=== PATIENT | female | born 1995 | race Caucasian/White ===

== ENCOUNTER 2019-07-17 10:12 | Emergency (ER) | payer OTHER, SELFPAY ==
[2019-07-17 11:10] LABS: Absolute Lymphocytes (CBC) 0.6 K/uL (0.7-4.9); Basophils % 0.2 % (0-1.3); Hematocrit 40.2 % (36.0-45.0); Lymphocytes % 5.7 % (15.3-44.8); MPV 9.8 fL (7.6-11.3); RBC Red Blood Cell Count 4.41 M/uL (3.86-4.86)
[2019-07-17 11:30] LABS: Albumin 4.2 g/dL (3.4-5.0); Bilirubin Direct 0.4 mg/dL (0-0.2); Potassium 3.8 mmol/L (3.5-5.1)
[2019-07-17] MEDS ORDERED: MORPHINE 4 MG/ML SYR ONE (11:39)
[2019-07-17] MEDS ORDERED: ONDANSETRON 4 MG/2 ML VIAL ONE (11:39)
[2019-07-17 11:42] LABS: Urine Bacteria <20 /HPF (<20); Urine Culture Reflex Order NOT NEEDED; Urine RBC <5 /HPF (NONE SEEN); Urine Trichomonas PRESENT (NONE SEEN)
[2019-07-17 11:53] LABS: Platelet Estimate DECR; Platelets, Giant PRESENT; Urine White Blood Cell Casts OK
[2019-07-17 11:54] LABS: Blood Morphology Comment NOT SEEN (NOT SEEN)
--- NOTE | 2019-07-17 12:34 | RAD REPORT ---
EXAM DESCRIPTION: US - Abdomen Exam Limited - 07/17/2019 12:21 pm CLINICAL HISTORY: right sided abdominal pain COMPARISON: No comparisons FINDINGS: The gallbladder demonstrates no gallstones. No pericholecystic fluid or gallbladder wall t hickening. The common bile duct is normal measuring 3 mm. The liver demonstrates no findings of intrahepatic biliary dilatation. IMPRESSION: Unremarkable examination.
[2019-07-17] MEDS ORDERED: AZITHROMYCIN 250 MG TAB ONE (13:08)
[2019-07-17] MEDS ORDERED: metroNIDAZOLE 500 MG TABLET ONE (13:09)
[2019-07-17] MEDS ORDERED: CEFTRIAXONE 250 MG/VIAL ONE (13:09)
--- NOTE | 2019-07-17 13:18 | EDPHYS ---
Physician Documentation [facility] Name: Viviane Parson Age: 24 yrs Sex: Female : 1995 Arrival Date: 07/17/2019 Time: 10:17 Bed 16 Private MD: ED Physician Mauricio Us HPI: 07/17 10:44 This 24 yrs old Female presents to ER via Ambulatory with complaints of Flank jmm Pain, Urinary Problem. 10:44 The patient complains of pain in the right flank. Onset: The symptoms/episode jmm began/occurred acutely. Modifying factors: The symptoms are alleviated by nothing. the symptoms are aggravated by nothing. Associated signs and symptoms: Pertinent positives: nausea. This is a 24 year old female with no chronic medical conditions that presents to the ED with complaints of right flank pain beginning this morning with nausea. Patient also complains of pelvic pain which radiates to the back. . 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 - Social history:: Smoking status: Patient uses tobacco products, Vapes. - Ebola Screening: : Patient negative for fever greater than or equal to 101.5 degrees Fahrenheit, and additional compatible Ebola Virus Disease symptoms. ROS: 10:44 Constitutional: Negative for fever, chills, and weight loss, Cardiovascular: Negative jmm for chest pain, palpitations, and edema, Respiratory: Negative for shortness of breath, cough, wheezing, and pleuritic chest pain. 10:44 Abdomen/GI: Positive for abdominal pain, nausea. 10:44 Back: Positive for flank pain, on the right. 10:44 All other systems are negative. Exam: 10:44 Constitutional: This is a well developed, well nourished patient who is awake, alert, jmm and in no acute distress. Head/Face: atraumatic. Eyes: EOMI, no conjunctival erythema appreciated ENT: Moist Mucus Membranes Neck: Trachea midline, Supple Chest/axilla: Normal chest wall appearance and motion. Cardiovascular: Regular rate and rhythm. No edema appreciated Respiratory: Normal respirations, no respiratory distress appreciated Abdomen/GI: Non distended, soft Back: Normal ROM Skin: General appearance color normal MS/ Extremity: Moves all extremities, no obvious deformities appreciated, no edema noted to the lower extremities Neuro: Awake and alert, normal gait Psych: Behavior is normal, Mood is normal, Patient is cooperative and pleasant Vital Signs: 10:24 BP 99 / 58; Pulse 85; Resp 16; Temp 98.2(TE); Pulse Ox 98% on R/A; Weight 73.03 kg (M); rb1 Height 5 ft. 7 in. (170.18 cm) (R); Pain 3/10; 11:24 BP 104 / 60; Pulse 77; Resp 16; Pulse Ox 99% on R/A; Pain 7/10; rb1 12:23 BP 143 / 60; Pulse 71; Resp 16; Pulse Ox 99% on R/A; Pain 4/10; rb1 13:21 BP 102 / 58; Pulse 94; Resp 16; Temp 98.1(O); Pulse Ox 100% on R/A; Pain 3/10; rb1 10:24 Body Mass Index 25.22 (73.03 kg, 170.18 cm) rb1 MDM: 10:27 Patient medically screened. [facility] 13:15 Data reviewed: vital signs, nurses notes. Counseling: I had a detailed discussion with joe the patient and/or guardian regarding: the historical points, exam findings, and any diagnostic results supporting the discharge/admit diagnosis, lab results, radiology results, the need for outpatient follow up, to return to the emergency department if symptoms worsen or persist or if there are any questions or concerns that arise at home. ED course: Patient is alert and non toxic in the ED. I discussed lab results along with the need for her partner to get tested. Due to right flank pain, patient is advised to follow up with GI. Patient also given early appendicitis return precautions. patient understood and agrees with the plan of care. . 07/17 10:42 Order name: Basic Metabolic Panel; Complete Time: 11:34 [facility] 07/17 10:42 Order name: CBC with Diff; Complete Time: 12:00 [facility] 07/17 10:42 Order name: Creatinine for Radiology; Complete Time: 11:34 [facility] 07/17 10:42 Order name: Hepatic Function; Complete Time: 11:34 [facility] 07/17 10:42 Order name: Lipase; Complete Time: 11:34 [facility] 07/17 11:14 Order name: Urine Microscopic Only; Complete Time: 12:00 [facility] 07/17 11:14 Order name: Urine Culture [facility] 07/17 11:23 Order name: Urine Dipstick--Ancillary (enter results) 1 07/17 11:23 Order name: Urine --Ancillary (enter results) [facility] 07/17 11:35 Order name: US Abdomen Limited; Complete Time: 12:43 [facility] 07/17 11:55 Order name: CBC Smear Scan; Complete Time: 12:00 [facility] 07/17 10:42 Order name: IV Saline Lock; Complete Time: 11:13 [facility] 07/17 10:42 Order name: Labs collected and sent; Complete Time: 11:13 [facility] 07/17 10:42 Order name: Urine Dipstick-Ancillary (obtain specimen); Complete Time: 11:13 [facility] 07/17 10:42 Order name: Urine Test (obtain specimen); Complete Time: 11:13 [facility] Administered Medications: 11:45 Drug: morphine 4 mg Route: IVP; Site: right antecubital; rb1 12:00 Follow up: Response: No adverse reaction; Pain is decreased rb1 11:45 Drug: Zofran 4 mg Route: IVP; Site: right antecubital; rb1 12:00 Follow up: Response: No adverse reaction; Nausea is decreased rb1 13:21 Drug: Rocephin (cefTRIAXone) 250 mg Route: IM; Site: left deltoid; rb1 13:50 Follow up: Response: No adverse reaction rb1 13:21 Drug: Flagyl 2 grams Route: PO; rb1 13:50 Follow up: Response: No adverse reaction rb1 13:21 Drug: AZITHromycin 1 grams Route: PO; rb1 13:50 Follow up: Response: No adverse reaction rb1 Disposition: 15:18 Co-signature as Attending Physician, Mauricio Us MD I agree with the assessment and kdr plan of care. Disposition: 07/17/19 13:17 Discharged to Home. Impression: Flank Pain, Trichomoniasis, unspecified. - Condition is Stable. - Discharge Instructions: Abdominal Pain, Adult, Flank Pain, Adult, Sexually Transmitted Disease, Trichomoniasis. - Prescriptions for Ultracet 37.5- 325 mg Oral Tablet - take 1 tablet by ORAL route every 6 hours - for up to 5 days; do not exceed 8 tablets per day.; 12 tablet. - Medication Reconciliation Form, Thank You Letter, Antibiotic Education, Prescription Opioid Use, Family Work Release form. - Follow up: Rosemary Serrano MD; When: 2 - 3 days; Reason: Recheck today's complaints, Continuance of care, Re-evaluation by your physician. Signatures: Dispatcher [employer] EDMauricio Baker MD MD kdr Mickail, Joel, PA PA Cass Odonnell, RN RN rb1 Corrections: (The following items were deleted from the chart) 13:55 13:17 07/17/2019 13:17 Discharged to Home. Impression: Flank Pain; Trichomoniasis, rb1 unspecified. Condition is Stable. Forms are Medication Reconciliation Form, Thank You Letter, Antibiotic Education, Prescription Opioid Use. Follow up: Rosemary Serrano; When: 2 - 3 days; Reason: Recheck today's complaints, Continuance of care, Re-evaluation by your physician. joe
--- NOTE | 2019-07-17 13:18 | ER ---
Nurse's Notes [facility] Name: Viviane Parson Age: 24 yrs Sex: Female : 1995 Arrival Date: 07/17/2019 Time: :17 Bed 16 Private MD: Diagnosis: Flank Pain;Trichomoniasis, unspecified Presentation: 07/17 10:24 Presenting complaint: Patient states: Back pain started this morning pain is similar to rb1 contractions per pt. report. Transition of care: patient was not received from another setting of care. Onset of symptoms was July 17, 2019. Risk Assessment: Do you want to hurt yourself or someone else? Patient reports no desire to harm self or others. Initial Sepsis Screen: Does the patient meet any 2 criteria? No. Patient's initial sepsis screen is negative. Does the patient have a suspected source of infection? No. Patient's initial sepsis screen is negative. Care prior to arrival: None. 10:24 Method Of Arrival: Ambulatory rb1 10:24 Acuity: HE 3 rb1 Triage Assessment: 10:24 General: Appears in no apparent distress. comfortable, Behavior is calm, cooperative, rb1 Reports fatigue for 0-12 hours, Denies fever. Pain: Complains of pain in right low back Pain radiates to right lower quadrant Pain currently is 3 out of 10 on a pain scale. at worst was 8 out of 10 on a pain scale. Pain began 0600 this morning. Neuro: Level of Consciousness is awake, alert, obeys commands, Oriented to person, place, time, situation. Cardiovascular: Capillary refill < 3 seconds is brisk in bilateral fingers. Respiratory: Airway is patent Respiratory effort is even, unlabored, Respiratory pattern is regular, symmetrical. GI: Reports diarrhea, nausea, since 0600. : No signs and/or symptoms were reported regarding the genitourinary system. Derm: Skin is pink, warm \T\ dry. 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 - Social history:: Smoking status: Patient uses tobacco products, Vapes. - Ebola Screening: : Patient negative for fever greater than or equal to 101.5 degrees Fahrenheit, and additional compatible Ebola Virus Disease symptoms. Screenin:24 Abuse screen: Denies threats or abuse. Nutritional screening: No deficits noted. rb1 Tuberculosis screening: No symptoms or risk factors identified. Fall Risk None identified. Assessment: 10:24 General: See triage assessment. rb1 11:24 Reassessment: Patient appears in no apparent distress at this time. Patient and/or rb1 family updated on plan of care and expected duration. Pain level reassessed. Patient is alert, oriented x 3, equal unlabored respirations, skin warm/dry/pink. 12:23 Reassessment: Patient appears in no apparent distress at this time. Patient and/or rb1 family updated on plan of care and expected duration. Pain level reassessed. Patient is alert, oriented x 3, equal unlabored respirations, skin warm/dry/pink. 13:21 Reassessment: Patient appears in no apparent distress at this time. No changes from rb1 previously documented assessment. 13:25 Reassessment: Discharge pending due to shot time. rb1 Vital Signs: 10:24 BP 99 / 58; Pulse 85; Resp 16; Temp 98.2(TE); Pulse Ox 98% on R/A; Weight 73.03 kg (M); rb1 Height 5 ft. 7 in. (170.18 cm) (R); Pain 3/10; 11:24 BP 104 / 60; Pulse 77; Resp 16; Pulse Ox 99% on R/A; Pain 7/10; rb1 12:23 BP 143 / 60; Pulse 71; Resp 16; Pulse Ox 99% on R/A; Pain 4/10; rb1 13:21 BP 102 / 58; Pulse 94; Resp 16; Temp 98.1(O); Pulse Ox 100% on R/A; Pain 3/10; rb1 10:24 Body Mass Index 25.22 (73.03 kg, 170.18 cm) [facility] ED Course: 10:17 Patient arrived in ED. as 10:20 Richard Villaseñor PA is PHCP. [facility] 10:20 Mauricio Us MD is Attending Physician. [facility] 10:24 Cass Stephens RN is Primary Nurse. rb1 10:24 Arm band placed on right wrist. rb1 10:24 Patient has correct armband on for positive identification. Bed in low position. Call rb1 light in reach. Side rails up X 1. Pulse ox on. NIBP on. Warm blanket given. 10:43 Triage completed. rb1 12:14 US Abdomen Limited In Process Unspecified. EDMS 13:16 Rosemary Serrano MD is Referral Physician. [facility] 13:55 No provider procedures requiring assistance completed. IV discontinued, intact, rb1 bleeding controlled, No redness/swelling at site. Pressure dressing applied. Administered Medications: 11:45 Drug: morphine 4 mg Route: IVP; Site: right antecubital; rb1 12:00 Follow up: Response: No adverse reaction; Pain is decreased rb1 11:45 Drug: Zofran 4 mg Route: IVP; Site: right antecubital; rb1 12:00 Follow up: Response: No adverse reaction; Nausea is decreased rb1 13:21 Drug: Rocephin (cefTRIAXone) 250 mg Route: IM; Site: left deltoid; rb1 13:50 Follow up: Response: No adverse reaction rb1 13:21 Drug: Flagyl 2 grams Route: PO; rb1 13:50 Follow up: Response: No adverse reaction rb1 13:21 Drug: AZITHromycin 1 grams Route: PO; rb1 13:50 Follow up: Response: No adverse reaction rb1 Outcome: 13:17 Discharge ordered by . m 13:55 Patient left the ED. rb1 13:55 Discharged to home ambulatory, with significant other. rb1 13:55 Condition: stable 13:55 Discharge instructions given to patient, Instructed on discharge instructions, follow up and referral plans. medication usage, Demonstrated understanding of instructions, follow-up care, medications, Prescriptions given X 1. Addendum: 07/20/2019 18:51 Addendum: Culture Results: Positive urine culture. Patient was not prescribed i w antibiotics at discharge. Report given to CARLOS for further evaluation and then to columnist/commentator for follow up with patient. Phone call Attempt #1 pt not having urinary s/s, no further action needed. Signatures: Dispatcher [employer] EDMS Richard Villaseñor PA PA jmm Martinez, Amelia as Williams, Irene, RN RN iw Cass Stephens RN RN rb1
[2019-07-17 14:00] VITALS: TEMP 98.2
[2019-07-17 14:02] VITALS: BP 104/60; O2SAT 99
[2019-07-17 14:26] LABS: Urine Blood NEGATIVE (NEG); Urine Glucose NEGATIVE (NEG); Urine Protein NEGATIVE (NEG); Urine Specific Gravity 1.025 (1.005-1.030); Urine pH 6.5 (5.0-7.0)
== END 2019-07-17 13:55 | disposition home or self-care (01) ==
LOC: ER 10:12
DX: A59.9 Trichomoniasis, unspecified (principal); F17.290 Nicotine dependence, other tobacco product, uncomplicated; Z91.040 Latex allergy status; Z91.048 Other nonmedicinal substance allergy status
CPT/HCPCS: 87088; 85025; 87086; 80048; 36415; 81025; 80076; 87077; 87186; 83690; 76705; 96375; 96372; 96374; 99284; J2405; J0696; 81003; 81015

== ENCOUNTER 2019-11-10 16:31 | Emergency (ER) | payer OTHER, SELFPAY ==
--- NOTE | 2019-11-10 17:38 | ER ---
Nurse's Notes [facility] Name: Viviane Parson Age: 24 yrs Sex: Female : 1995 Arrival Date: 11/10/2019 Time: 16:32 Bed 13 Private MD: Diagnosis: Pain in right foot Presentation: 11/10 16:36 Presenting complaint: Right foot pain x 2 days. Denies injury. Transition of care: hb patient was not received from another setting of care. Onset of symptoms was November 09, 2019. Risk Assessment: Do you want to hurt yourself or someone else? Patient reports no desire to harm self or others. Initial Sepsis Screen: Does the patient meet any 2 criteria? No. Patient's initial sepsis screen is negative. Does the patient have a suspected source of infection? No. Patient's initial sepsis screen is negative. Care prior to arrival: None. 16:36 Method Of Arrival: Wheelchair 16:36 Acuity: HE 4 hb Triage Assessment: 16:45 General: Appears in no apparent distress. comfortable, Behavior is cooperative, bp appropriate for age, anxious. Pain: Complains of pain in right foot. EENT: No deficits noted. Neuro: No deficits noted. Cardiovascular: No deficits noted. Respiratory: No deficits noted. GI: No signs and/or symptoms were reported involving the gastrointestinal system. : No signs and/or symptoms were reported regarding the genitourinary system. Derm: No deficits noted. Musculoskeletal: Reports R FOOT PAIN/SWELLING. 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 - Coronavirus screen:: The patient has NOT traveled to [place] in the past 14 days. The patient has NOT had contact with known/suspected case of Coronavirus? Proceed with normal triage procedures. - Social history:: Smoking status: Patient reports the use of cigarette tobacco products, smokes one pack cigarettes per day. - Ebola Screening: : No symptoms or risks identified at this time. Screenin:45 Abuse screen: Denies threats or abuse. Denies injuries from another. Nutritional bp screening: No deficits noted. Tuberculosis screening: No symptoms or risk factors identified. Fall Risk None identified. Assessment: 16:45 General: SEE TRIAGE NOTE. bp 18:05 Reassessment: PT D/C HOME ON CRUTCHES, DX WITH RIGHT FOOT PAIN. bp Vital Signs: 16:39 BP 102 / 73; Pulse 72; Resp 16; Temp 97.5; Pulse Ox 100% ; Weight 63.5 kg; Height 5 ft. hb 6 in. (167.64 cm); Pain 8/10; 18:00 BP 109 / 69; Pulse 67; Resp 17; Temp 97.8; Pulse Ox 100% ; bp 16:39 Body Mass Index 22.60 (63.50 kg, 167.64 cm) hb ED Course: 16:32 Patient arrived in ED. ag5 16:37 Triage completed. hb 16:39 Arm band placed on. hb 16:45 Diaz River PA is PHCP. cp 16:45 Diaz Metcalf MD is Attending Physician. cp 16:45 Patient has correct armband on for positive identification. Bed in low position. Call bp light in reach. Side rails up X2. 17:03 Bandar Lama, RN is Primary Nurse. bp 17:50 Crutch training done. Adolfo wrap to right foot. bp 18:05 No provider procedures requiring assistance completed. Patient did not have IV access bp during this emergency room visit. Administered Medications: No medications were administered Outcome: 17:36 Discharge ordered by MD. cp 18:05 Discharged to home ambulatory, with crutches. bp 18:05 Condition: stable 18:05 Discharge instructions given to patient, Instructed on discharge instructions, follow up and referral plans. medication usage, crutch walking, Demonstrated understanding of instructions, follow-up care, medications, crutch walking, Prescriptions given X 1. 18:07 Patient left the ED. bp Signatures: Diaz River PA PA cp Justine Campos RN RN Bandar Lama, KANDACE RN bp Yang Del Valle ag5 Corrections: (The following items were deleted from the chart) 18:07 18:05 Reassessment: PT D/C HOME ON CRUTCHES, DX WITH LEFT FOOT PAIN bp bp
--- NOTE | 2019-11-10 17:39 | EDPHYS ---
Physician Documentation [facility] Name: Viviane Parson Age: 24 yrs Sex: Female : 1995 Arrival Date: 11/10/2019 Time: 16:32 Bed 13 Private MD: ED Physician Diaz Metcalf HPI: 11/10 17:05 This 24 yrs old Female presents to ER via Wheelchair with complaints of Foot cp Pain, Feet Swelling. 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 - Coronavirus screen:: The patient has NOT traveled to [place] in the past 14 days. The patient has NOT had contact with known/suspected case of Coronavirus? Proceed with normal triage procedures. - Social history:: Smoking status: Patient reports the use of cigarette tobacco products, smokes one pack cigarettes per day. - Ebola Screening: : No symptoms or risks identified at this time. ROS: 17:10 Constitutional: Negative for chills, fever. cp 17:10 Eyes: Negative for injury, pain, redness, and discharge. cp 17:10 Respiratory: Negative for cough, shortness of breath. 17:10 Abdomen/GI: Negative for abdominal pain. 17:10 MS/extremity: Positive for pain, swelling, tenderness, of the right foot, Negative for injury or acute deformity, paresthesias. 17:10 Skin: Negative for rash. 17:10 All other systems are negative. Exam: 17:20 Constitutional: The patient appears in no acute distress, alert, awake, non-toxic, well cp developed, well nourished. 17:20 Head/Face: Normocephalic, atraumatic. cp 17:20 Cardiovascular: Rate: normal. 17:20 Respiratory: the patient does not display signs of respiratory distress, Respirations: normal. 17:20 Musculoskeletal/extremity: Extremities: grossly normal except: noted in the proximal right great toe: pain, swelling, tenderness, There is no evidence of decreased ROM, deformity, Perfusion: the extremity is normally perfused throughout, Sensation intact. 17:20 Skin: cellulitis, is not appreciated, no rash present. Vital Signs: 16:39 BP 102 / 73; Pulse 72; Resp 16; Temp 97.5; Pulse Ox 100% ; Weight 63.5 kg; Height 5 ft. hb 6 in. (167.64 cm); Pain 8/10; 18:00 BP 109 / 69; Pulse 67; Resp 17; Temp 97.8; Pulse Ox 100% ; bp 16:39 Body Mass Index 22.60 (63.50 kg, 167.64 cm) hb MDM: 16:46 Patient medically screened. cp 17:35 Data reviewed: vital signs, nurses notes, radiologic studies, plain films. Test cp interpretation: by ED physician or midlevel provider: plain radiologic studies, xrays of right foot negative for fracture. 11/10 17:03 Order name: XRAY Foot RIGHT 3 View cp 11/10 17:34 Order name: Adolfo Wrap; Complete Time: 18:04 cp 11/10 17:34 Order name: Crutches; Complete Time: 18:04 cp Administered Medications: No medications were administered Disposition: 11/10/19 17:36 Discharged to Home. Impression: Pain in right foot. - Condition is Stable. - Discharge Instructions: Foot Pain. - Prescriptions for Diclofenac Sodium 75 mg Oral Tablet, Delayed Release (E.C.) - take 1 tablet by ORAL route 2 times per day; 20 tablet. - Medication Reconciliation Form, Thank You Letter, Antibiotic Education, Prescription Opioid Use form. - Follow up: Private Physician; When: 2 - 3 days; Reason: Worsening of condition. - Problem is new. - Symptoms have improved. Addendum: 11/12/2019 08:35 Co-signature as Attending Physician, Diaz Metcalf MD I agree with the assessment and c flynn plan of care. Signatures: Dispatcher [employer] Diaz Osborne MD MD cha Page, Corey PA PA cp Justine Campos, KANDACE RN Bandar Philippe RN RN bp Corrections: (The following items were deleted from the chart) 11/10 18:07 17:36 11/10/2019 17:36 Discharged to Home. Impression: Pain in right foot. Condition is bp Stable. Forms are Medication Reconciliation Form, Thank You Letter, Antibiotic Education, Prescription Opioid Use. Follow up: Private Physician; When: 2 - 3 days; Reason: Worsening of condition. Problem is new. Symptoms have improved. cp 23:21 15:10 MS/extremity: Positive for pain, swelling, tenderness, of the right foot, cp cp 23:21 15:10 Constitutional: Negative for body aches, chills, fever, cp cp 23:21 15:10 Eyes: Negative for injury, pain, redness, and discharge, cp cp 23:21 15:10 Cardiovascular: Negative for chest pain, cp cp 23:21 15:10 Respiratory: Negative for cough, shortness of breath, cp cp 23:21 15:10 Abdomen/GI: Negative for abdominal pain, cp cp 23:21 15:10 Skin: Negative for rash, cp cp 23:21 15:10 All other systems are negative, cp cp
--- NOTE | 2019-11-10 17:40 | RAD REPORT ---
EXAM DESCRIPTION: RAD - Foot Right 3 View - 11/10/2019 5:30 pm CLINICAL HISTORY: PAIN COMPARISON: No comparisons FINDINGS: No bone or joint abnormality seen.
[2019-11-10 20:52] VITALS: BP 102/73; TEMP 97.5; O2SAT 100
== END 2019-11-10 18:07 | disposition home or self-care (01) ==
LOC: ER 16:31
DX: M79.671 Pain in right foot (principal); Z91.040 Latex allergy status
CPT/HCPCS: 99283

== ENCOUNTER 2021-03-18 16:45 | Emergency (ER) | payer SELFPAY ==
[2021-03-18 18:04] LABS: Urine Blood Negative (Negative); Urine Glucose Negative (Negative); Urine Protein Negative (Negative); Urine Specific Gravity >=1.030 (1.005-1.030); Urine pH 5.5 (5.0-7.0)
--- NOTE | 2021-03-18 20:49 | ER ---
Nurse's Notes [facility] Name: Viviane Parson Age: 25 yrs Sex: Female : 1995 Arrival Date: 03/18/2021 Time: 16:58 Bed 28 Private MD: Diagnosis: Flank Pain;Dysuria Presentation: 03/18 17:35 Chief complaint: Patient states: Right flank pain starting 03/13. Pt stated I thought I kg had a UTI two weeks ago I took AZO and it got better, I'm no longer having burning or pain with urination but I do have dark urine, and has an odor. Coronavirus screen: Client denies travel out of the [place] in the last 14 days. At this time, unable to obtain information related to travel outside the [place] At this time, the client does not indicate any symptoms associated with coronavirus-19. Ebola Screen: Patient negative for fever greater than or equal to 101.5 degrees Fahrenheit, and additional compatible Ebola Virus Disease symptoms Patient denies exposure to infectious person. Patient denies travel to an Ebola-affected area in the 21 days before illness onset. Initial Sepsis Screen: Does the patient meet any 2 criteria? No. Patient's initial sepsis screen is negative. Does the patient have a suspected source of infection? Yes: Dysuria/Frequency/Urgency/UTI. Risk Assessment: Do you want to hurt yourself or someone else? Patient reports no desire to harm self or others. Onset of symptoms was March 13, 2021. 17:35 Method Of Arrival: Ambulatory kg 17:35 Acuity: HE 3 kg Triage Assessment: 17:39 General: Appears in no apparent distress. Behavior is calm, cooperative, appropriate kg for age, quiet. Pain: Complains of pain in Right flank Pain does not radiate. Pain currently is 7 out of 10 on a pain scale. at worst was 8 out of 10 on a pain scale. level that patient reports is acceptable is 3 out of 10 on a pain scale. Quality of pain is described as sharp, Pain began 03/13/2021. 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 - Social history:: Smoking status: Patient reports the use of cigarette tobacco products, smokes one-half pack cigarettes per day. Screenin:40 Abuse screen: Denies threats or abuse. Denies injuries from another. Nutritional kg screening: No deficits noted. Tuberculosis screening: No symptoms or risk factors identified. Fall Risk None identified. No fall in past 12 months (0 pts). No secondary diagnosis (0 pts). No IV (0 pts). Ambulatory Aid- None/Bed Rest/Nurse Assist (0 pts). Gait- Normal/Bed Rest/Wheelchair (0 pts) Mental Status- Oriented to own ability (0 pts). Total Houston Fall Scale indicates No Risk (0-24 pts). Assessment: 20:00 General: Appears in no apparent distress. comfortable, Behavior is calm, cooperative, em appropriate for age. Pain: Complains of pain in right flank Pain currently is 7 out of 10 on a pain scale. Neuro: Level of Consciousness is awake, alert, obeys commands, Oriented to person, place, time, situation. Cardiovascular: Capillary refill < 3 seconds Patient's skin is warm and dry. Respiratory: Airway is patent Respiratory effort is even, unlabored, Respiratory pattern is regular, symmetrical. GI: Patient currently denies nausea, vomiting. : Denies burning with urination. Derm: Skin is intact, is healthy with good turgor, Skin is pink, warm \T\ dry. Musculoskeletal: Capillary refill < 3 seconds, Range of motion: intact in all extremities. Vital Signs: 17:35 BP 111 / 66; Pulse 80; Resp 18; Temp 99.3(O); Pulse Ox 100% ; Weight 76.57 kg (M); kg Height 5 ft. 6 in. (167.64 cm) (R); Pain 7/10; 17:35 Body Mass Index 27.24 (76.57 kg, 167.64 cm) kg ED Course: 16:58 Patient arrived in ED. am2 17:38 Triage completed. kg 17:39 Arm band placed on right wrist. kg 17:41 Patient has correct armband on for positive identification. kg 17:41 No provider procedures requiring assistance completed. kg 19:31 Richard Villaseñor PA is PHCP. [facility] 19:31 Ramon Joyner MD is Attending Physician. [facility] 19:53 Case Lobato, RN is Primary Nurse. em 20:56 Patient did not have IV access during this emergency room visit. em Administered Medications: No medications were administered Outcome: 20:48 Discharge ordered by . [facility] 21:06 Discharged to home ambulatory. em 21:06 Condition: good 21:06 Discharge instructions given to patient, Instructed on discharge instructions, follow up and referral plans. medication usage, Demonstrated understanding of instructions, follow-up care, medications, Prescriptions given X 2. 21:06 Patient left the ED. em Signatures: Richard Villaseñor PA PA [facility] Case Lobato, RN RN Carmela Manzano counts include 234 beds at the [facility] Martha Jha, RN RN kg
--- NOTE | 2021-03-18 20:49 | EDPHYS ---
Physician Documentation [facility] Name: Viviane Parson Age: 25 yrs Sex: Female : 1995 Arrival Date: 03/18/2021 Time: 16:58 Bed 28 Private MD: FRANCISCO Physician Ramon Joyner HPI: 03/18 20:01 This 25 yrs old Female presents to ER via Ambulatory with complaints of Flank jmm Pain - Right. 20:01 The patient complains of pain in the right flank. Onset: The symptoms/episode jmm began/occurred gradually, 1 day(s) ago. Modifying factors: The symptoms are alleviated by nothing. the symptoms are aggravated by nothing. Associated signs and symptoms: Pertinent positives: dysuria, Pertinent negatives: fever. The patient has experienced similar episodes in the past. 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 - Social history:: Smoking status: Patient reports the use of cigarette tobacco products, smokes one-half pack cigarettes per day. ROS: 20:01 Constitutional: Negative for fever, chills, and weight loss, Cardiovascular: Negative jmm for chest pain, palpitations, and edema, Respiratory: Negative for shortness of breath, cough, wheezing, and pleuritic chest pain. 20:01 Abdomen/GI: Positive for nausea. 20:01 Back: Positive for flank pain. 20:01 All other systems are negative. Exam: 20:01 Constitutional: This is a well developed, well nourished patient who is awake, alert, jmm and in no acute distress. Head/Face: atraumatic. Eyes: EOMI, no conjunctival erythema appreciated ENT: Moist Mucus Membranes Neck: Trachea midline, Supple Chest/axilla: Normal chest wall appearance and motion. Cardiovascular: Regular rate and rhythm. No edema appreciated Respiratory: Normal respirations, no respiratory distress appreciated Abdomen/GI: Non distended, soft 20:01 Skin: General appearance color normal MS/ Extremity: Moves all extremities, no obvious deformities appreciated, no edema noted to the lower extremities Neuro: Awake and alert, normal gait Psych: Behavior is normal, Mood is normal, Patient is cooperative and pleasant 20:01 Back: CVA tenderness, that is mild, is noted on the right. Vital Signs: 17:35 BP 111 / 66; Pulse 80; Resp 18; Temp 99.3(O); Pulse Ox 100% ; Weight 76.57 kg (M); kg Height 5 ft. 6 in. (167.64 cm) (R); Pain 7/10; 17:35 Body Mass Index 27.24 (76.57 kg, 167.64 cm) kg MDM: 20:01 Patient medically screened. [facility] 20:04 Data reviewed: vital signs, nurses notes. Counseling: I had a detailed discussion with joe the patient and/or guardian regarding: the historical points, exam findings, and any diagnostic results supporting the discharge/admit diagnosis, lab results, the need for outpatient follow up, to return to the emergency department if symptoms worsen or persist or if there are any questions or concerns that arise at home. ED course: Patient is alert and non toxic in appearance in the ED. Will treat due to dysuria and flank pain. Patient given strict return precautions. patient understood and agrees with the plan o fcare. . 20:42 Refusal of service: The patient/guardian displays adequate decision making capability [facility] and despite a detailed discussion of alternatives, benefits, risks, and consequences refuses: CT Scan. 03/18 18:03 Order name: Urine Dipstick-Ancillary; Complete Time: 20:01 EDMS Administered Medications: No medications were administered Disposition: 03/19 06:39 Co-signature as Attending Physician, Ramon Joyner MD. [email or web address] Disposition: 03/18/21 20:48 Discharged to Home. Impression: Flank Pain, Dysuria. - Condition is Stable. - Discharge Instructions: Dysuria, Flank Pain, Adult. - Prescriptions for Cephalexin 500 mg Oral Capsule - take 1 capsule by ORAL route every 6 hours for 10 days; 40 capsule. orphenadrine citrate 100 mg Oral Tablet Sustained Release - take 1 tablet by ORAL route 2 times per day As needed; 20 tablet. - Medication Reconciliation Form, Thank You Letter, Antibiotic Education, Prescription Opioid Use, Work release form form. - Follow up: Private Physician; When: As needed; Reason: Recheck today's complaints, Continuance of care, Re-evaluation by your physician. Signatures: Dispatcher [employer] EDIN Richard Villaseñor PA PA jmm Munoz, Edgar, RN RN Ramon Joyner MD MD 7 Martha Jha, RN RN kg Corrections: (The following items were deleted from the chart) 03/18 20:01 19:53 IV Saline Lock ordered. em em 20: 19:53 Labs collected and sent ordered. em em 20:04 19:54 BASIC METABOLIC PANEL+C.LAB.BRZ ordered. EDMS EDMS 20:04 19:54 CBC+H.LAB.BRZ ordered. EDMS EDMS 20:04 19:54 HEPATIC FUNCTION+C.LAB.BRZ ordered. EDMS EDMS 20:04 19:54 LIPASE+C.LAB.BRZ ordered. EDMS EDMS 20:43 20:06 Stone Protocol+CT.RAD.BRZ ordered. EDIN EDMS 21:06 20:48 03/18/2021 20:48 Discharged to Home. Impression: Flank Pain; Dysuria. Condition em is Stable. Forms are Medication Reconciliation Form, Thank You Letter, Antibiotic Education, Prescription Opioid Use. Follow up: Private Physician; When: As needed; Reason: Recheck today's complaints, Continuance of care, Re-evaluation by your physician. joe
[2021-03-18 21:27] VITALS: BP 111/66; TEMP 99.3; O2SAT 100
== END 2021-03-18 21:06 | disposition home or self-care (01) ==
LOC: ER 16:45
DX: R30.0 Dysuria (principal); F17.210 Nicotine dependence, cigarettes, uncomplicated; Z91.040 Latex allergy status; Z91.048 Other nonmedicinal substance allergy status
CPT/HCPCS: 81003; 99282